=== PATIENT | female | born 1935 | race Caucasian/White ===

== ENCOUNTER 2016-05-12 22:16 | Emergency (ER) | payer MEDICARE ==
--- NOTE | ~2016-05-12 | CR72 ---
[facility] A Service of [facility] RADIOLOGY TEXT RESULTS PATIENT: SAGAR HEREDIA LOCATION: [facility] : 35 UNIT #: [id number] AGE: [address]: Alyssa Fuller MD SEX: F ORDER DR: [id number] [facility] [address] [place], [place] [address] [id number] MR#: [id number] Acc #: [id number] NAME: SAGAR HEREDIA. : 1935 SEX: F STUDY DATE/TIME: 05/12/2016 22:19 UNIT: [facility] ROOM: STUDY DESCRIPTION: CR Chest Single View Portable Attending Physician: Alyssa Fuller M.D. Ordering Physician: Alyssa Fuller M.D. Primary Care Physician: Domenico Vidales M.D. MEDICAL IMAGING REPORT This report is preliminary unless electronic signature is present EXAM Portable AP view of the chest COMPARISON September 28, 2012, December 24, 2011, and October 01, 2009. INDICATION An 81-year-old female with chest congestion and severe cough for 1 week. FINDINGS Cardiomediastinal silhouette is within normal limits. There is calcification of the aortic arch. No evidence of pneumothorax, pleural effusion or acute airspace disease. Surgical clips in the left axilla, new from comparison, likely due to axillary lymph node biopsy in this patient with history of breast cancer. IMPRESSION No acute radiographic abnormality. Dictated by... Pola Vidales M.D. THIS IS AN ELECTRONICALLY VERIFIED REPORT Pola Vidales M.D. at 05/15/2016 7:28 PM JAKOB/celio TD: 05/13/2016 01:37 JOB #: [id number] MEDICAL IMAGING REPORT COPY
[~2016-05-12 22:16] MED LIST: ADVICOR; ALDACTONE PO; ALLEGRA; ALLEGRA PO; ALLEGRA180 MG PO; ALLOPURINOL300 MG PO; ASPIRIN81 M1 PO; ASPIRINEC; ASPIRINEC PO; ATIVAN; ATIVAN PO; ATIVAN0.5 M1 PO; ATIVAN0.5 MG PO; BACLOFEN10 MG PO; BENICAR PO; CALCIUM + VITAM1 TAB PO; CALCIUM CITRATE + D PO; CHRONULAC10 GM/15 M PO; CIPRO PO; CITRUCEL500 MG; DIOVAN; DOCUSATE SODIU100 MG PO; EVISTA60 M1 PO; EVISTA60 MG; EVISTA60 MG PO; FLEXERIL10 MG PO; FLONASE16 GM; HALFPRIN162 MG PO; HCTZ; HEMORRHOID OINTMENT; LASIX; LASIX20 MG PO; LEVAQUIN PO; LEVOTHROID75 MCG PO; LOTRIMIN AF12 GM TP; MEVACOR PO; MIRALAX17 GM PO; MOBIC PO; MULTI PURPOSE MC; MULTI-VITAMIN1 EAC1 PO; MULTI-VITAMIN1 TAB; MULTIVITAMIN1 UDCAP PO; MULTIVITAMINS W1 TAB PO; NEXIUM; NIACIN PO; NIACIN500 M2 PO; OMEPRAZOLE20 M2 PO; OTC STOOL SOFTENER; PLENDIL PO; POTASSIUM CITRATE PO; PRILOSEC PO; PYRIDIUM PO; ROBITUSSIN AC PO; SALINE NASAL SPRAY; SENNA8.6 M1 PO; SYNTHROID; SYNTHROID PO; TYLENOL325 M1 PO; VITAMIN D31000 UNIT PO; ZETIA; ZETIA PO; ZYLOPRIM; ZYLOPRIM PO
[2016-05-13 00:41] LABS: INFLUENZA A NEG (NEG); INFLUENZA B NEG (NEG)
== END 2016-05-13 01:07 | disposition home or self-care (01) ==
LOC: CED 22:16
PROVIDERS: Student in an Organized Health Care Education/Training Program
DX: J20.9 Acute bronchitis, unspecified (principal); E11.9 Type 2 diabetes mellitus without complications; Z88.0 Allergy status to penicillin; Z88.5 Allergy status to narcotic agent
CPT/HCPCS: 71010; 82947; 87804; 99283

== ENCOUNTER → 2016-11-28 | Outpatient (CLI) | payer MEDICARE ==
--- NOTE | ~2016-11-28 | MY28 ---
[facility] A Service of [facility] RADIOLOGY TEXT RESULTS PATIENT: SAGAR HEREDIA LOCATION: [facility] : 35 UNIT #: [id number] AGE: [address]: Ban Doctor NOT IN SYSTEM SEX: F ORDER DR: [id number] [place], [place] [address] [id number] O MR#: [id number] Acc #: [id number] NAME: SGAAR HEREDIA : 1935 SEX: F STUDY DATE/TIME: 11/28/2016 12:11 UNIT: [facility] ROOM: STUDY DESCRIPTION: MY JESSICA SCREEN W/ CAD UNI RT Attending Physician: Generic Doctor Not In System Referring Physician: Generic Doctor Not In System Ordering Physician: Domenico Vidales M.D. Primary Care Physician: Domenico Vidales M.D. MEDICAL IMAGING REPORT This report is preliminary unless electronic signature is present EXAM Digital screening mammogram with CAD. INDICATIONS Right breast screening. History of left breast cancer post mastectomy. PROCEDURE CC and MLO views of the right breast obtained on a digital mammography unit, FDA-approved CAD device utilized. COMPARISON 11/22/2015. FINDINGS Scattered fibroglandular density. No dominant mass or suspicious calcification. IMPRESSION Negative right breast screening. Recommend patient continue with yearly screening. Patients over the age of 40 are entered into a reminder system with target due date for the next mammogram. A result letter will be sent to the patient. BIRADS: 1 Negative. Dictated by... Ishan Mazariegos M.D. THIS IS AN ELECTRONICALLY VERIFIED REPORT Ishan Mazariegos M.D. at 11/29/2016 7:03 AM EED/gz [facility] A Service of [facility] RADIOLOGY TEXT RESULTS PATIENT: SAGAR HEREDIA LOCATION: [facility] : 35 UNIT #: [id number] AGE: [address]: Ban Doctor NOT IN SYSTEM SEX: F ORDER DR: TD: 11/29/2016 06:51 JOB #: [id number] MEDICAL IMAGING REPORT Page 1 of 1 COPY
== END | disposition home or self-care (01) ==
LOC: CWCC 11-23 11:00
DX: Z12.31 Encounter for screening mammogram for malignant neoplasm of breast (principal); Z85.3 Personal history of malignant neoplasm of breast; Z90.12 Acquired absence of left breast and nipple
CPT/HCPCS: G0202